=== PATIENT | female | born 1960 | race Caucasian/White ===

== ENCOUNTER 2020-01-09 02:14 | Outpatient (CLI) | payer MEDICARE, BC, SELFPAY ==
--- NOTE | 2020-01-09 09:55 | DI.CTLCSR_ITS ---
EXAM: CT CHEST LUNG CANCER SCREEN CLINICAL HISTORY: SCREENING, Z12.2, SMOKER, F17.210 COMPARISON: No exams were available for comparison FINDINGS: Chest CT was performed utilizing low-dose lung cancer screening protocol. Images obtained through th e upper abdomen show unremarkable appearance of visualized portions of the liver, spleen pancreas, ad renals, and kidneys. There are areas of subpleural emphysema, particularly in the lung apices. There is a 2 millimeter ri ght upper lobe pulmonary nodule. No additional significant intrapulmonary nodule identified. Trache obronchial tree appears intact. No mediastinal or hilar adenopathy. Cardiac size within normal limi ts. No pleural effusion seen. IMPRESSION: Category 1, negative LDCT, annual LDCT recommended in 12 months.
== END 2020-01-09 02:34 ==
PROVIDERS: PCP Registered Nurse; Visit Provider Registered Nurse
DX: Z12.2 Encounter for screening for malignant neoplasm of respiratory organs (principal); F17.210 Nicotine dependence, cigarettes, uncomplicated; R91.1 Solitary pulmonary nodule; J43.9 Emphysema, unspecified
CPT/HCPCS: G0297

== ENCOUNTER 2020-01-09 03:04 | Outpatient (CLI) | payer BC, MEDICARE, SELFPAY ==
--- NOTE | 2020-01-09 08:00 | PFT_ITS ---
INTERPRETATION SPIROMETRY: Spirometry shows mild obstructive airways disease with no bronchodilator response. LUNG VOLUMES: Lung volumes show no evidence of restriction. There is mild to moderate hyperinflation and air trapping. DIFFUSION CAPACITY: Moderately reduced even when corrected to alveolar volume. AIRWAY RESISTANCE: Elevated. IMPRESSION: Mild obstructive airways disease with no significant bronchodilator response. This is associated with moderate diffusion defect and mild to moderate hyperinflation and air trapping Clinical correlation recommended.
== END 2020-01-09 03:24 ==
PROVIDERS: PCP Registered Nurse; Visit Provider Registered Nurse
DX: R06.09 Other forms of dyspnea (principal); R05 Cough; F17.210 Nicotine dependence, cigarettes, uncomplicated; Z01.811 Encounter for preprocedural respiratory examination
CPT/HCPCS: 94060; 94726; 94729; G0297

== ENCOUNTER → 2023-08-03 10:04 | Outpatient (BNVA) | payer MEDICARE, MEDICAID, SELFPAY | PROVIDERS: PCP Registered Nurse; Referring Provider Registered Nurse; Visit Provider Physician Assistant Surgical | DX: J43.9 Emphysema, unspecified (principal); R91.8 Other nonspecific abnormal finding of lung field; K21.9 Gastro-esophageal reflux disease without esophagitis | CPT/HCPCS: 99205 ==

== ENCOUNTER 2023-08-11 02:22 | Outpatient (CLI) | payer MEDICARE, MEDICAID, SELFPAY ==
--- NOTE | 2023-08-11 | DI.CTLCSR_ITS ---
Exam(s) CT CHEST LUNG CANCER SCREEN EXAM: CT CHEST LUNG CANCER SCREEN CLINICAL HISTORY: SCREENING FOR LUNG CA,SMOKER, F17.210 TECHNIQUE: Imaging Protocol: Axial computed tomography images with coronal and sagittal reformatted images were created and reviewed COMPARISON: CT CT CHEST LUNG CANCER SCREEN from 01/09/[address] CHEST LUNG CANCER SCREEN from 02/09/2021 FINDINGS: Tracheobronchial tree: Patent where visualized. Pulmonary parenchyma: No consolidation or dominant measurable mass. Emphysematous changes are seen in the lungs. Lung Nodules: None. Mediastinum and Bina: No dominant adenopathy or fluid collection. The esophagus is unremarkable. Thyroid gland: Unremarkable. Lymph nodes: Unremarkable. Pleura: No effusion or pneumothorax. Heart: The heart is not dilated. Coronary artery calcifications are present. No pericardial effusion . Aorta: Thoracic aorta non-dilated.Atherosclerosis. Upper abdomen: Unremarkable. Soft Tissues: Unremarkable. Bones: Within normal limits for the patient's age. IMPRESSION: No pulmonary nodules. Lung RADS Cat 1 - Negative: No nodules and definitely benign nodules Lung-RADS 1.0 CATEGORIES: Category 0 - Prior chest CT exam(s) being located for comparison. Category 1 - Annual screening in 12 months. No nodules or definitely benign nodules. Category 2 - Annual screening in 12 months. Benign appearance. Nodules with low likelihood of becomin g active cancer. Category 3 - 6-month follow-up. Probably benign. Short-term follow-up suggested. Nodules with low lik elihood of becoming active cancer. Category 4A - 3-month follow-up and CT/PET if >8 mm in size. Suspicious finding. Findings which requi re additional testing. Category 4B - Findings which require additional testing and tissue sampling. Suspicious finding. Category 4X - Category 3 or 4 nodules with additional features or imaging findings that increases the suspicion of malignancy. Modifier S- Potentially clinically significant finding. (Non lung cancer) RADIATION DOSE DELIVERED: Total DLP Total DLP DATA REPOSITORY: All CT scans at this facility are submitted to the National Radiology Data Registry (NRDR) Dose Index Registry (DIR) with the [employer] ([employer]). RADIATION OPTIMIZATION: All CT scans at this facility use at least one of these dose optimization te chniques: automated exposure control; mA and/or kV adjustment per patient size (includes targeted exa ms where dose is matched to clinical indication); or iterative reconstruction.
== END 2023-08-11 02:42 ==
LOC: DI 02:22
PROVIDERS: PCP Registered Nurse; Visit Provider Registered Nurse
DX: F17.210 Nicotine dependence, cigarettes, uncomplicated (principal); Z12.2 Encounter for screening for malignant neoplasm of respiratory organs
CPT/HCPCS: 71271